=== PATIENT | female | born 1980 | race African-American/Black ===

== ENCOUNTER 2017-04-23 09:06 | Emergency (ER) | payer OTHER | END 2017-04-23 10:20 | disposition home or self-care (01) | LOC: SCSER 09:06 | DX: J45.901 Unspecified asthma with (acute) exacerbation (principal); B34.9 Viral infection, unspecified; J06.9 Acute upper respiratory infection, unspecified; I10 Essential (primary) hypertension | CPT/HCPCS: 99283 ==

== ENCOUNTER 2019-03-10 12:59 | Outpatient (CLI) | payer OTHER | END 2019-03-10 13:00 | disposition home or self-care (01) | LOC: DTY/OP 12:59 | PROVIDERS: ATTEND Family Medicine | DX: E66.01 Morbid (severe) obesity due to excess calories (principal) | CPT/HCPCS: 97802 ==

== ENCOUNTER 2019-04-12 12:42 | Outpatient (CLI) | payer OTHER | END 2019-04-12 12:43 | disposition home or self-care (01) | LOC: DTY/OP 12:42 | PROVIDERS: ATTEND Family Medicine | DX: E66.01 Morbid (severe) obesity due to excess calories (principal) | CPT/HCPCS: 97802 ==

== ENCOUNTER 2019-05-11 12:35 | Outpatient (CLI) | payer OTHER | END 2019-05-11 12:36 | disposition home or self-care (01) | LOC: DTY/OP 12:35 | PROVIDERS: ATTEND Surgery | DX: E66.01 Morbid (severe) obesity due to excess calories (principal) | CPT/HCPCS: 97802 ==

== ENCOUNTER 2019-07-07 09:38 | Outpatient (CLI) | payer OTHER ==
[2019-07-07 18:15] LABS: #Eosinphils 0.1 thou/uL (0.0-0.7); #Lymphocytes 1.6 thou/uL (1.20-3.40); #Monocytes 0.5 thou/uL (0.11-0.59); #Neutrophils 3.9 thou/uL (1.40-6.50); %Basophils 0.4 % (0.0-1.0); %Eosinophils 1.7 % (0.0-10.0); %Lymphocytes 26.5 % (21.0-51.0); %Monocytes 7.8 % (0.0-10.0); %Neutrophils 63.6 % (42.0-75.0); Hemoglobin 13.6 g/dL (12.0-16.0); Mean Corpuscular HGB CONC 32.2 g/dL (32.0-36.0); Mean Corpuscular Hemoglobin 27.8 pg (27.0-31.0); Mean Corpuscular Volume 86.3 fL (78.0-98.0); Platelet Count 426 thou/uL (130-400); White Blood Cell (WBC) Count 6.1 thou/uL (4.8-10.8)
[2019-07-07 18:26] LABS: Hemoglobin A1c 5.7 % (4.0-6.0)
[2019-07-07 18:31] LABS: BHCG - Serum Negative (NEGATIVE); Pregs Control Background? CLEAR/WHITE (CLR/WHITE); Pregs Control Bar Appear? YES (CONTROL BAR)
[2019-07-07 18:45] LABS: ALT (SGPT) 14 U/L (8-55); AST (SGOT) 12 U/L (5-34); Albumin 3.9 g/dL (3.5-5.0); Alkaline Phosphatase 66 U/L (40-110); Anion Gap 10 mmol/L (10-20); BUN (Urea Nitrogen) 19 mg/dL (7.0-18.7); Bilirubin, Total 0.3 mg/dL (0.2-1.2); Calc. Creatinine Clearance 0 mL/min (70-130); Calcium 9.3 mg/dL (7.8-10.44); Carbon Dioxide 27 mmol/L (22-29); Chloride 102 mmol/L (98-107); Estimated GFR-MDRD 71; Globulin 3.3 g/dL (2.4-3.5); Glucose 95 mg/dL (70-105); Potassium 4.1 mmol/L (3.5-5.1); Protein, Total 7.2 g/dL (6.0-8.3); Sodium 135 mmol/L (136-145)
--- NOTE | 2019-07-07 20:14 | RAD ---
EXAM: Chest PA and lateral: HISTORY: Preoperative exam. COMPARISON: 09/23/2014 FINDINGS: Heart: Normal cardiac silhouette Aorta: Unremarkable Pulmonary vessels: Normal Costophrenic angles: Costophrenic angles are clear. Lungs: No consolidation or masses. Pneumothorax: No pneumothorax Osseous structures: No osseous abnormalities IMPRESSION: No acute cardiopulmonary process.
== END 2019-07-07 09:39 | disposition home or self-care (01) ==
LOC: LABBT 09:38
PROVIDERS: ATTEND Surgery
DX: Z01.818 Encounter for other preprocedural examination (principal); E66.01 Morbid (severe) obesity due to excess calories
CPT/HCPCS: 71046; 80053; 83036; 84703; 85025; 93005; 93010

== ENCOUNTER 2019-07-07 17:00 | Inpatient (IN) | payer OTHER ==
[2019-07-13] MEDS ORDERED: Midazolam HCl 2 mg/2 ml Vial ONE (06:33)
[2019-07-13] MEDS ORDERED: Fentanyl 100 MCG/2 ML VIAL ONE ×3 (06:34→10:06)
[2019-07-13] MEDS ORDERED: Famotidine/PF 20 mg/2ml Vial ONE (06:34)
[2019-07-13] MEDS ORDERED: Scopolamine 1.5 mg/72 hour Patch ONE (06:34)
[2019-07-13] MEDS ORDERED: Heparin 5,000 UNITS/ML VIAL ONE (06:38)
[2019-07-13] MEDS ORDERED: Lidocaine 1% w/Epinephrine 1:100K 20 ML VIAL ONE (06:47)
[2019-07-13] MEDS ORDERED: Bupivacaine 0.25% HCL 30 ML VIAL ONE (06:47)
[2019-07-13] MEDS ORDERED: Ketamine 50 MG/ML (10ML VIAL) ONE (07:03)
--- NOTE | 2019-07-13 08:15 | RAD ---
CHEST 1 VIEW: INDICATION: History of preop. COMPARISON: Prior exam dated 07/07/2019. FINDINGS: Lungs are clear. Heart size is accentuated by the exam technique. No pleural effusion or pneumothor ax is evident. No acute osseous abnormality is evident. IMPRESSION: No acute cardiopulmonary abnormality. POS: ALEJANDRA
[2019-07-13] MEDS ORDERED: Succinylcholine Chloride 20 MG/ML 10 ml SYRINGE FS ONE (09:04)
[2019-07-13] MEDS ORDERED: Glycopyrrolate 0.2 MG/ML 5 ML SYRINGE ONE (09:04)
[2019-07-13] MEDS ORDERED: PROPOFOL 200 MG/20 ML VIAL ONE (09:04)
[2019-07-13] MEDS ORDERED: Esmolol 100 MG/10 ML VIAL ONE (09:04)
[2019-07-13] MEDS ORDERED: Lidocaine 1% PF 5 ML VIAL ONE (09:04)
[2019-07-13] MEDS ORDERED: Labetalol HCl 100 MG/20 ML VIAL ONE (09:04)
[2019-07-13] MEDS ORDERED: PHENYLEPHRINE-NS 100 MCG/ML 10 ML SYRINGE ONE (09:04)
[2019-07-13] MEDS ORDERED: Rocuronium Bromide 10 MG/ML (10ML VIAL) ONE (09:04)
[2019-07-13] MEDS ORDERED: Ondansetron PF 4 MG/2 ML Vial ONE (09:04)
[2019-07-13] MEDS ORDERED: diphenhydrAMINE 50 MG/ML VIAL ONE (09:04)
[2019-07-13] MEDS ORDERED: Ondansetron PF 4 MG/2 ML Vial IVP PRN ×2 (09:07→09:24)
[2019-07-13] MEDS ORDERED: Dextrose 5% in Water 1,000 ML IV PRN (09:07)
[2019-07-13] MEDS ORDERED: Dextrose 50% Abboject 50 ML SYRINGE SLOW IVP PRN (09:07)
[2019-07-13] MEDS ORDERED: Promethazine HCl 25 MG/ML VIAL IM PRN ×3 (09:07→09:48)
[2019-07-13] MEDS ORDERED: diphenhydrAMINE 50 MG/ML VIAL IVP PRN ×2 (09:07→09:24)
[2019-07-13] MEDS ORDERED: hydrALAZINE 20 MG/ML VIAL SLOW IVP PRN (09:07)
[2019-07-13] MEDS ORDERED: Hydrocodone-Acetamin 15 ML UDCUP PO PRN (09:07)
[2019-07-13] MEDS ORDERED: SUGAMMADEX SODIUM 200 MG/2 ML VIAL ONE (09:08)
[2019-07-13] MEDS ORDERED: Zolpidem Tartrate 5 MG TAB PO PRN (09:24)
[2019-07-13] MEDS ORDERED: fentaNYL Citrate/PF 2,000 MCG in Sodium Chloride 0.9% 60 ML IV PRN (09:24)
[2019-07-13] MEDS ORDERED: diphenhydrAMINE 25 MG CAP PO PRN (09:24)
[2019-07-13] MEDS ORDERED: Naloxone HCl 0.4 mg/ml Vial IV PRN (09:24)
[2019-07-13] MEDS ORDERED: diphenhydrAMINE 50 MG/ML VIAL IM PRN (09:24)
[2019-07-13] MEDS ORDERED: Communication Order-Pharmacy FS SCH (09:30)
[2019-07-13] MEDS ORDERED: Promethazine HCl 25 MG/ML VIAL SLOW IVP PRN (09:48)
[2019-07-13] MEDS ORDERED: Ondansetron HCl/PF 4 MG/2 ML Vial IVP PRN (09:48)
[2019-07-13] MEDS ORDERED: D5 1/2 NS w/20 mEq KCL 1,000 ML ONE (12:11)
[2019-07-13] MEDS ORDERED: Ketorolac Tromethamine 30 MG/ML VIAL ONE (12:12)
[2019-07-13] MEDS: D5 1/2 NS w/20 mEq KCL 1,000 ML IV SCH ×2 (12:14→17:51)
[2019-07-13] MEDS: Ketorolac Tromethamine 30 MG/ML VIAL IVP SCH ×3 (12:14→23:32)
[2019-07-13] MEDS ORDERED: CEFAZOLIN 2 GM in Premix Bag 1 BAG IVPB SCH (14:00)
[2019-07-13 16:03] VITALS: BMI 39.8
[2019-07-13] MEDS: CEFAZOLIN 2 GM in Premix Bag 1 BAG IVPB SCH ×2 (16:51→23:32)
[2019-07-14] MEDS: D5 1/2 NS w/20 mEq KCL 1,000 ML IV SCH ×3 (02:22→10:27)
[2019-07-14] MEDS: Ketorolac Tromethamine 30 MG/ML VIAL IVP SCH ×2 (05:11→12:13)
[2019-07-14 05:35] LABS: #Monocytes 0.9 thou/uL (0.11-0.59); #Neutrophils 10.8 thou/uL (1.40-6.50); %Eosinophils 0.1 % (0.0-10.0); %Lymphocytes 14.3 % (21.0-51.0); %Monocytes 6.3 % (0.0-10.0); %Neutrophils 79.2 % (42.0-75.0); Hemoglobin 13.4 g/dL (12.0-16.0); Mean Corpuscular Hemoglobin 28.6 pg (27.0-31.0); Mean Corpuscular Volume 86.7 fL (78.0-98.0); Mean Platelet Volume 6.8 fL (7.4-10.4); Platelet Count 406 thou/uL (130-400); RBC Distribution Width 12.8 % (11.5-14.5); Red Blood Cell (RBC) Count 4.69 mill/uL (4.20-5.40); White Blood Cell (WBC) Count 13.6 thou/uL (4.8-10.8)
[2019-07-14 05:36] LABS: Anion Gap 12 mmol/L (10-20); BUN (Urea Nitrogen) 10 mg/dL (7.0-18.7); Calc. Creatinine Clearance 109 mL/min (70-130); Calcium 8.7 mg/dL (7.8-10.44); Carbon Dioxide 23 mmol/L (22-29); Chloride 105 mmol/L (98-107); Estimated GFR-MDRD 64; Glucose 112 mg/dL (70-105); Potassium 4.2 mmol/L (3.5-5.1); Sodium 136 mmol/L (136-145)
--- NOTE | 2019-07-14 07:14 | OP ---
DATE OF PROCEDURE: 07/13/2019 PREOPERATIVE DIAGNOSIS: Morbid obesity. PROCEDURES PERFORMED: Laparoscopic hiatal hernia repair, laparoscopic sleeve gastrectomy, intraoperative esophagogastroscopy. INDICATIONS FOR PROCEDURE: The patient is a 38-year-old female, morbidly obese, who has attempted multiple weight loss programs without success. She also was found to have a moderate-size hiatal hernia intraoperatively that was repaired. FINDINGS: 38-[place] bougie used. Hiatal hernia found and repaired. DESCRIPTION OF PROCEDURE: After informed consent was obtained, the patient was taken to the operating room, given general endotracheal anesthesia, placed in supine position. Abdomen was prepped and draped in usual fashion. Local anesthesia was infiltrated subcutaneously and deep and a 12 mm incision was performed approximately 8 inches below the xiphoid slightly to the left. Veress needle was inserted. Drop test was performed. Pneumoperitoneum was created to a pressure of 15 mmHg. A 0 degree laparoscope was inserted under direct vision. A Nidhi liver retractor was inserted. Left lobe of the liver retracted superiorly. The pylorus was identified. A 12 mm port was placed on the right beneath it and two 12s placed in left subcostal. The omentum was taken off the greater curvature utilizing the LigaSure. Short gastrics divided with LigaSure and left crura defined with LigaSure. The gastrophrenic ligament was opened. She had a very large right gastric artery that was very proximal to the hiatal opening, made it difficult to define and dissect the right crura. I was able to dissect the hiatal hernia out from the left side including seeing the right crura posteriorly. I was able to get the stomach reduced. Then, the 38-[place] bougie was inserted, directed into the stomach, and an anterior plication was performed due to the fact that I was worried due to the proximity of that right gastric artery of injury, so I was able to stay away from it by doing an anterior plication utilizing 0 Ethibond with the Sew-Right and Ti-Knot device. Then, the bougie was further directed into the antrum. The linear 60 mm green load stapler was used to divide the antrum to the bougie, gold load along the bougie, and a series of blues through the angle of His. Intraoperative endoscopy was performed. The video endoscope was inserted under direct vision and advanced into the sleeve. The staple line was inspected. There was no bleeding. Staple line was then tested by inflating the new stomach with pressurized air under water. There was no air leak. Stomach was decompressed. Scope was removed. The remnant of stomach was removed from the abdomen through the left lateral port site. The fascia was closed with 0 Vicryl suture and the GraNee needle. Trocars and retractors were removed. Skin was closed with interrupted 4-0 Rapide. Dermabond was applied. The patient tolerated the procedure well, transferred to Recovery in good condition. Sponge and needle count verified correct x2. Job ID: [id number]
[2019-07-14] MEDS ORDERED: Enoxaparin Sodium 40 MG/0.4 ML SYRINGE SC SCH (09:00)
[2019-07-14] MEDS ORDERED: Pantoprazole 40 MG VIAL IVP SCH (09:00)
--- NOTE | 2019-07-14 09:36 | RAD ---
Upper GI series single column: DATE: 07/14/2019 HISTORY: 38-year-old female status post bariatric surgery. Evaluate for complications. TECHNIQUE: Upright administration of 15 mL Gastrografin. Brief, intermittent fluoroscopy. FINDINGS: Contrast material travels through the narrowed gastric channel and into the duodenum at an appropriat e right. No obstruction or leakage. IMPRESSION: 1. Status post vertical sleeve gastrectomy. 2. No complications.
--- NOTE | 2019-07-14 09:57 | PDOC.GSPN ---
Surgery Progress Note: Subj - Subjective Patient reports: pain well controlled (Pain level 1/10), tolerating liquids well , voiding w/o difficulty, no bowel movement Narrative: Ms. Bernal is a 38 year old female 1 day s/p sleeve gastrectomy. Patient reports she is doing well. Pain level 1/10. Denies any nausea, vomiting, fever. She is ambulatory, voiding without difficulty. She has not yet had a bowel movement, but states she has been burping. Patient reports she is tolerating liquids well. Surgery Progress Note: Obj - Vital signs Vital signs: Vital Signs - Most Recent Temp Pulse Resp BP Pulse Ox 98.3 F 95 14 128/83 97 07/14/19 07:30 07/14/19 07:30 07/14/19 07:30 07/14/19 07:30 07/14/19 07:30 Surgery Progress Note: Results - Labs Result Diagrams: 07/14/19 04:47 07/14/19 04:47 Lab results: Laboratory Results - last 24 hr 07/14/19 07/14/19 04:47 04:47 WBC 13.6 H RBC 4.69 Hgb 13.4 Hct 40.6 MCV 86.7 MCH 28.6 MCHC 33.0 RDW 12.8 Plt Count 406 H MPV 6.8 L Neutrophils % 79.2 H Lymphocytes % 14.3 L Monocytes % 6.3 Eosinophils % 0.1 Basophils % 0.0 Neutrophils # 10.8 H Lymphocytes # 2.0 Monocytes # 0.9 H Eosinophils # 0.0 Basophils # 0.0 Sodium 136 Potassium 4.2 Chloride 105 Carbon Dioxide 23 Anion Gap 12 BUN 10 Creatinine 1.15 H Estimated GFR (MDRD) 64 Glucose 112 H Calcium 8.7 Surgery Progress Note: A/P - Problem (1) Morbid obesity Current Visit: Yes Code(s): E66.01 - MORBID (SEVERE) OBESITY DUE TO EXCESS CALORIES Status: Acute Assessment and Plan: Patient is doing well. She is ambulatory, pain well controlled (1/10), voiding without difficulty. Has not yet had bowel movement. No n/v, no fever. - Plan Plan: Post-op day 1 sleeve gastrectomy: remain on liquid diet for 2 weeks, pain control
[2019-07-14] MEDS ORDERED: Hydrocodone-Acetamin 15 ML UDCUP PO PRN ×2 (10:15→10:16)
[2019-07-14 11:45] VITALS: BP 132/80; TEMP 98.5
--- NOTE | 2019-07-14 12:11 | DIS ---
DATE OF ADMISSION: 07/13/2019 DATE OF DISCHARGE: 07/14/2019 DISCHARGE DIAGNOSES: Morbid obesity, hiatal hernia. PROCEDURES DURING ADMISSION: Laparoscopic hiatal hernia repair, sleeve gastrectomy, intraoperative esophagogastroscopy, postoperative Gastrografin swallow. HOSPITAL COURSE: The patient was admitted, taken to the operating room, where she underwent a sleeve gastrectomy and repair of hiatal hernia. Postoperatively, she has done well. Her x-ray was fine. She was started on liquids. She is tolerating well. She is discharged to home on hydrocodone and Zofran. She will follow up with me in 2 weeks. Job ID: [id number]
[2019-07-14] MEDS ORDERED: GASTROGRAFIN 30 ML BOT ONE (14:56)
== END 2019-07-14 12:45 | disposition home or self-care (01) | DRG 621 ==
LOC: SURG A 07-13 05:50
PROVIDERS: ADMIT Surgery; ATTEND Surgery
PROC: 0DB64Z3 Excision of Stomach, Percutaneous Endoscopic Approach, Vertical (ICD-10-PCS; principal; 2019-07-13)
PROC: 0BQT4ZZ Repair Diaphragm, Percutaneous Endoscopic Approach (ICD-10-PCS; 2019-07-13)
PROC: 0DJ08ZZ Inspection of Upper Intestinal Tract, Via Natural or Artificial Opening Endoscopic (ICD-10-PCS; 2019-07-13)
DX: E66.01 Morbid (severe) obesity due to excess calories (principal); I10 Essential (primary) hypertension; J45.909 Unspecified asthma, uncomplicated; Z68.39 Body mass index [BMI] 39.0-39.9, adult; K44.9 Diaphragmatic hernia without obstruction or gangrene
CPT/HCPCS: 36415; 71045; 74240; 80048; 85025; 88307; 88312; 94660; J0690; J1200; J1644; J1650; J1885; J2001; J2250; J2405; J2704; J3010; J7620; Q9963; S0020; S0028

== ENCOUNTER 2022-12-27 19:12 | Emergency (ER) | payer SELFPAY ==
[2022-12-27] MEDS ORDERED: methylPREDNISolone Sod Succ/PF 125 MG/2 ML VIAL ONE (19:46)
[2022-12-27] MEDS ORDERED: Magnesium 2 GM/50 ML BAG (IN WATER) ONE (19:46)
[2022-12-27] MEDS ORDERED: Albuterol 2.5 MG/0.5 ML NEB ONE (19:49)
== END 2022-12-27 21:48 | disposition home or self-care (01) ==
LOC: ERS 19:12
DX: J45.901 Unspecified asthma with (acute) exacerbation (principal); I10 Essential (primary) hypertension; Z79.51 Long term (current) use of inhaled steroids
CPT/HCPCS: 71045; 94640; 96365; 96366; 96375; J2930; J3475; J7611